=== PATIENT | male | born 1980 | race Caucasian/White ===

== ENCOUNTER 2018-03-24 02:19 | Emergency (ER) | payer OTHER ==
[2018-03-24 03:30] LABS: Amphetamine Screen,Urine Not Detected (NotDetected); Barbiturate Screen,Urine Not Detected (NotDetected); Benzodiazepines Screen,Urine Detected (NotDetected); Cocaine Screen,Urine Not Detected (NotDetected); Methadone Screen, Urine Not Detected (NotDetected); Opiate Screen,Urine Not Detected (NotDetected); Oxycodone Screen, Urine Not Detected (NotDetected); Phencyclidine Screen,Urine Not Detected (NotDetected); Tricyclic Antidepressant,Urine Not Detected (NotDetected); Urn Cannabinoid Scrn Detected (NotDetected)
[2018-03-24 03:40] LABS: Basophils % (A) 1 %; Eosinophils # (A) 0.3 k/uL (0-0.7); Eosinophils % (A) 6 %; HCT 44.8 % (39.0-53.0); HGB 15.1 gm/dL (13.0-17.5); Lymphocytes # (A) 2.5 k/uL (1.0-4.8); Lymphocytes % (A) 45 %; MCH 31.3 pg (25.0-35.0); MCHC 33.8 g/dL (31.0-37.0); MCV 92.6 fL (80.0-100.0); Mean Platelet Volume 6.7; Monocytes # (A) 0.5 k/uL (0-1.0); Monocytes % (A) 8 %; Neutrophils % (A) 37 %; Platelet Count 179 k/uL (150-450); RBC 4.83 m/uL (4.30-5.90); RDW 13.6 % (11.5-15.5); WBC 5.5 k/uL (3.8-10.6)
[2018-03-24 03:56] LABS: Anion Gap 13 mmol/L; Blood Urea Nitrogen 10 mg/dL (9-20); Calcium 8.8 mg/dL (8.4-10.2); Carbon Dioxide 28 mmol/L (22-30); Chloride 104 mmol/L (98-107); Glucose 90 mg/dL (74-99); Potassium 3.8 mmol/L (3.5-5.1); Sodium 145 mmol/L (137-145)
[2018-03-24 04:04] LABS: Alcohol 200 mg/dL
--- NOTE | 2018-03-24 06:24 | ED ---
Psych HPI - General Source: patient Mode of arrival: EMS - History of Present Illness MD Complaint: suicidal ideation, feels depressed, other (Anger) -: days(s) Associated Psychiatric Symptoms: none History of same: Yes Quality: getting worse Improves With: none Worsens With: alcohol Context: recent alcohol abuse Associated Symptoms: denies other symptoms <AnjaliTrent - Last Filed: 03/24/18 06:22> <Henri Goel - Last Filed: 03/24/18 09:13> - General Chief Complaint: Psychiatric Symptoms Stated Complaint: mental health Time Seen by Provider: 03/24/18 02:20 - Related Data Home Medications Medication Instructions Recorded Confirmed Ibuprofen [Motrin] 600 mg PO Q8HR PRN 03/24/18 03/24/18 Allergies Allergy/AdvReac Type Severity Reaction Status Date / Time bee venom protein (honey bee) Allergy Anaphylaxis Verified 03/24/18 02:41 Penicillins Allergy Anaphylaxis Verified 03/24/18 02:41 Review of Systems ROS Other: All systems not noted in ROS Statement are negative. Constitutional: Denies: fever, chills Respiratory: Denies: cough, dyspnea Cardiovascular: Denies: chest pain, palpitations, syncope Gastrointestinal: Denies: abdominal pain, vomiting, diarrhea Genitourinary: Denies: dysuria, hematuria Musculoskeletal: Denies: back pain Neurological: Denies: headache, weakness, numbness Psychiatric: Reports: homicidal thoughts, suicidal thoughts <AnjaliTrent - Last Filed: 03/24/18 06:22> ROS Other: All systems not noted in ROS Statement are negative. <Henri Goel - Last Filed: 03/24/18 09:13> ROS Statement: Those systems with pertinent positive or pertinent negative responses have been documented in the HPI. Past Medical History Past Medical History: No Reported History History of Any Multi-Drug Resistant Organisms: MRSA Date of last positivie culture/infection: 2016 MDRO Source:: right leg Past Surgical History: Orthopedic Surgery Additional Past Surgical History / Comment(s): left shoulder Past Psychological History: ADD/ADHD, Depression Smoking Status: Current every day smoker Past Alcohol Use History: Occasional Past Drug Use History: Marijuana <AnjaliTrent - Last Filed: 03/24/18 06:22> General Exam Limitations: no limitations General appearance: alert, in no apparent distress, appears intoxicated Head exam: Present: atraumatic, normocephalic Eye exam: Present: normal appearance. Absent: scleral icterus, conjunctival injection Respiratory exam: Present: normal lung sounds bilaterally. Absent: respiratory distress, wheezes, rales, rhonchi Cardiovascular Exam: Present: regular rate, normal rhythm, normal heart sounds. Absent: systolic murmur, diastolic murmur, rubs, gallop GI/Abdominal exam: Present: soft. Absent: distended, tenderness, guarding, rebound, mass Extremities exam: Present: normal inspection, normal capillary refill. Absent: pedal edema, calf tenderness Back exam: Present: normal inspection Neurological exam: Present: alert Psychiatric exam: Present: homicidal ideation, suicidal ideation. Absent: agitated, anxious, manic Skin exam: Present: warm, dry, intact, normal color. Absent: rash <Trent Alba - Last Filed: 03/24/18 06:22> Vital Signs 03/24/18 03/24/18 02:22 06:58 Temperature 97.4 F L Pulse Rate 79 68 Respiratory 18 15 Rate Blood Pressure 135/87 94/51 O2 Sat by Pulse 99 97 Oximetry Medical Decision Making - Lab Data Result diagrams: 03/24/18 03:14 03/24/18 03:14 <Trent Alba - Last Filed: 03/24/18 06:22> - Lab Data Result diagrams: 03/24/18 03:14 03/24/18 03:14 <Henri Goel - Last Filed: 03/24/18 09:13> - Medical Decision Making Patient was signed out to me by Dr. Hung. EPS came down and evaluated the patient and determined the patient could be discharged home. Patient is denying any suicidal or homicidal ideations. (Henri Goel) - Lab Data Lab Results 03/24/18 03/24/18 03/24/18 Range/Units 02:35 03:14 03:14 WBC 5.5 (3.8-10.6) k/uL RBC 4.83 (4.30-5.90) m/uL Hgb 15.1 (13.0-17.5) gm/dL Hct 44.8 (39.0-53.0) % MCV 92.6 (80.0-100.0) fL MCH 31.3 (25.0-35.0) pg MCHC 33.8 (31.0-37.0) g/dL RDW 13.6 (11.5-15.5) % Plt Count 179 (150-450) k/uL Neutrophils % 37 % Lymphocytes % 45 % Monocytes % 8 % Eosinophils % 6 % Basophils % 1 % Neutrophils # 2.0 (1.3-7.7) k/uL Lymphocytes # 2.5 (1.0-4.8) k/uL Monocytes # 0.5 (0-1.0) k/uL Eosinophils # 0.3 (0-0.7) k/uL Basophils # 0.0 (0-0.2) k/uL Sodium 145 (137-145) mmol/L Potassium 3.8 (3.5-5.1) mmol/L Chloride 104 (98-107) mmol/L Carbon Dioxide 28 (22-30) mmol/L Anion Gap 13 mmol/L BUN 10 (9-20) mg/dL Creatinine 0.80 (0.66-1.25) mg/dL Est GFR (CKD-EPI)AfAm >90 (>60 ml/min/1.73 sqM) Est GFR (CKD-EPI)NonAf >90 (>60 ml/min/1.73 sqM) Glucose 90 (74-99) mg/dL Calcium 8.8 (8.4-10.2) mg/dL Magnesium 2.0 (1.6-2.3) mg/dL Urine Opiates Screen Not Detected (NotDetected) Ur Oxycodone Screen Not Detected (NotDetected) Urine Methadone Screen Not Detected (NotDetected) Ur Propoxyphene Screen Not Detected (NotDetected) Ur Barbiturates Screen Not Detected (NotDetected) U Tricyclic Antidepress Not Detected (NotDetected) Ur Phencyclidine Scrn Not Detected (NotDetected) Ur Amphetamines Screen Not Detected (NotDetected) U Methamphetamines Scrn Not Detected (NotDetected) U Benzodiazepines Scrn Detected H (NotDetected) Urine Cocaine Screen Not Detected (NotDetected) U Marijuana (THC) Screen Detected H (NotDetected) Serum Alcohol 200 mg/dL Disposition <Trent Alba - Last Filed: 03/24/18 06:22> Is patient prescribed a controlled substance at d/c from ED?: No Time of Disposition: 09:13 <Henri Goel - Last Filed: 03/24/18 09:13> Clinical Impression: Situational depression Disposition: HOME SELF-CARE Instructions: Abuse of Alcohol (ED) Referrals: None,Stated [Primary Care Provider] - 1-2 days
[2018-03-24 09:27] VITALS: BP 97/56; PULSE 77; RESP 16; TEMP 98
== END 2018-03-24 09:26 | disposition home or self-care (01) ==
LOC: EC 02:19
DX: F43.21 Adjustment disorder with depressed mood (principal); R45.850 Homicidal ideations; R45.851 Suicidal ideations; F10.129 Alcohol abuse with intoxication, unspecified; F17.200 Nicotine dependence, unspecified, uncomplicated; Z88.0 Allergy status to penicillin; Z91.018 Allergy to other foods; Z86.14 Personal history of Methicillin resistant Staphylococcus aureus infection
CPT/HCPCS: 36415; 80048; 80306; 80320; 82075; 83735; 85025; 99284